=== PATIENT | female | born 1990 | race Caucasian/White ===

== ENCOUNTER 2019-09-12 09:45 | Outpatient (RCR) | payer OTHER, SELFPAY ==
[2019-08-14 13:13] VITALS: BP 107/58; PULSE 106
[2019-08-22 09:50] VITALS: BP 148/80; PULSE 105
[2019-08-29 09:45] VITALS: BP 103/83; PULSE 128
[2019-09-05 13:29] VITALS: BP 103/83; PULSE 105
[2019-09-12 10:42] VITALS: BP 141/74; PULSE 108
== END 2019-09-19 07:29 | disposition home or self-care (01) ==
LOC: ANHOBOP 09:45
PROVIDERS: PCP Internal Medicine; Visit Provider Obstetrics & Gynecology Gynecology
DX: O24.913 Unspecified diabetes mellitus in pregnancy, third trimester (principal); O30.003 Twin pregnancy, unspecified number of placenta and unspecified number of amniotic sacs, third trimester; Z3A.32 32 weeks gestation of pregnancy; Z3A.33 33 weeks gestation of pregnancy; Z3A.34 34 weeks gestation of pregnancy; Z3A.35 35 weeks gestation of pregnancy; Z3A.36 36 weeks gestation of pregnancy
CPT/HCPCS: 59025

== ENCOUNTER 2019-09-15 10:31 | Outpatient (CLI) | payer OTHER, SELFPAY ==
[2019-09-15 11:22] LABS: Hematocrit 29.5 % (37.0-47.0); Hemoglobin 9.4 g/dL (12.0-15.0); Mean Corpuscular HGB Conc 31.9 g/dl (32-36); Mean Corpuscular Volume 84.8 fl (80-100); Mean Platelet Volume 10.1 fl (7.4-10.4); Platelet Count Result 206 k/mm3 (150-375); Red Blood Count 3.48 M/mm3 (4.2-5.4); Red Cell Distribution Width 15.8 % (11.5-14.5); White Blood Count 8.2 K/mm3 (4.5-10.0)
--- NOTE | 2019-09-15 11:30 | ECG_ITS ---
Measurements Intervals [place] Rate: 98 P: 41 DC: 120 QRS: 19 QRSD: 84 T: 22 QT: 344 QTc: 440 Interpretive Statements SINUS RHYTHM POSSIBLE LEFT ATRIAL ENLARGEMENT BORDERLINE ECG Electronically Signed On 09-15-2019 14:43:37 CDT by Demond Howard D.O.
[2019-09-15 12:02] LABS: Vitamin D 25 Hydroxy 43.3 ng/mL
[2019-09-15 12:15] LABS: HIV 1/2 Ab P24 Ag Result Negative (Negative)
[2019-09-16 09:48] LABS: Rapid Plasma Reagin Non-Reactive (NonReactive)
== END 2019-09-15 10:32 | disposition home or self-care (01) ==
LOC: ANHLAB 10:38
PROVIDERS: PCP Internal Medicine; Visit Provider Obstetrics & Gynecology Gynecology
DX: Z34.93 Encounter for supervision of normal pregnancy, unspecified, third trimester (principal); Z3A.00 Weeks of gestation of pregnancy not specified
CPT/HCPCS: 36415; 82306; 85027; 86592; 86703; 86850; 86900; 86901; 93005; G0432

== ENCOUNTER 2019-09-16 10:04 | Inpatient (IN) | payer OTHER, SELFPAY ==
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
[2019-09-16] VITALS (40 sets, daily range): BP systolic 103–151; BP diastolic 43–92; PULSE 79–104; RESP 16; TEMP 36.1–36.4; O2SAT 97–99; BMI 60.7
[2019-09-16] MEDS: LACTATED RINGERS 1,000 ML 999 ML IV CONT ×2 (10:30→11:44)
--- NOTE | 2019-09-16 11:01 | LDADM ---
This patient, Amanda Hogan, was admitted to Labor/Delivery/Recovery 120 on 09/16/19 at 10:04. Plans for labor, pain management and were discussed with patient. Patient/family oriented to hospital policies and general routines including ID bracelet, bed and alarms, visiting hours, pain management, procedures, bathroom and other care routines, personal items, smoking policy, room service/diet and guest tray routines, security routines, and visiting hours. Patient/Family are encouraged to report perceived risks to care and to ask questions if they do not understand what they are told or what they should do. See OBIX for further documentation.
--- NOTE | 2019-09-16 11:33 | WPDANESEPPF ---
Anes - Initial Pre Proc Eval Procedure: Operation Date: 09/16/19 12:00 Proposed Procedures p Repeat Section- Twins - Debra Perdomo MD Date/Time: 09/16/19 11:33 Surgeon: Debra Perdomo MD Pre Op Diagnosis: C/S Patient Data Age: 29 Gender: F Height: 1.65 m Weight: 165.5 kg Last Vital Signs Pulse 104 H 09/16/19 11:14 BP 129/81 09/16/19 11:14 Allergies Allergy/AdvReac Type Severity Reaction Status Date / Time latex Allergy Mild RASH Verified 09/09/19 12:38 Molds and Smuts Allergy Intermediate Difficulty Uncoded 09/09/19 12:38 Breathing CATS Allergy Mild Sneezing Uncoded 09/09/19 12:38 Home Medications Medication Instructions Recorded Confirmed Type pantoprazole 40 mg tablet,delayed 40 mg PO QAM #90 tablet 04/08/19 09/16/19 Rx release PNV cmb#95-ferrous fumarate-FA 1 tablet PO DAILY 09/09/19 09/09/19 History [] aspirin [Adult Low Dose Aspirin] 81 mg PO DAILY 09/09/19 09/16/19 History ergocalciferol (vitamin D2) 1,250 mcg PO WEEKLY 09/09/19 09/09/19 History [Vitamin D2] insulin glargine U-300 conc 80 unit SUBCUT DAILY 09/09/19 09/16/19 History [Toujeo SoloStar U-300 Insulin] insulin glargine U-300 conc 180 unit SUBCUT HS 09/09/19 09/16/19 History [Toujeo SoloStar U-300 Insulin] insulin regular human [Novolin R 65 - 70 unit SUBCUT TID 09/09/19 09/16/19 History Regular U-100 Insuln] labetalol 100 mg PO Q12H 09/09/19 09/16/19 History Patient hx anesthesia problems: none Family hx anesthesia problems: none [facility] Past Medical History Medical History (Updated 09/16/19 @ 10:43 by José Miguel Bustamante DO) Anxiety Diabetes type 2, controlled Hypertension Surgical History Surgical History (Updated 09/16/19 @ 10:43 by José Miguel Bustamante DO) History of History of cholecystectomy History of tonsillectomy Family History Family History (Updated 09/09/19 @ 12:53 by Awa Strickland RN) Father Asthma Hypertension Mother Family history of arthritis Hypertension Social History Social History Smoking status: Former smoker Tobacco type: cigarettes Second hand tobacco smoke exposure: Yes Smoking end date: 11/24/18 Alcohol intake: current Substance use: never Spiritual care concerns: No Anes - Eval Final PreProcedure Day of Procedure 09/16/19 11:33 Patient weight: obese Heart: regular rate and rhythm Lungs: clear to auscultation and normal air movement Airway: Mallampati scale class II Neurological: alert and oriented Last oral intake: >/= 8 hours ASA classification: III Emergent: no Anesthetic plan: proceed Anesthesia type and monitoring: regional spinal Informed Consent: The patient's anesthetic plan and its attendant risks and benefits were discussed with the patient/family/POA. Questions were solicited and answers provided to the satisfaction of the patient/family/POA.
[2019-09-16] MEDS: ceFAZolin 3 GM/D5W 100 ML 100 ML IVPB (11:45)
[2019-09-16 12:04] LABS: Glucose Point of Care 80 (65-105)
--- NOTE | 2019-09-16 13:21 | PM.OP ---
Procedure Note - Brief Procedure Note - Brief Date of procedure: 09/16/19 Pre-op diagnosis: C/S IUP 37 wks; twins; NIDDM; prior csection; transverse/transverse lie Post-op diagnosis: same Procedure performed: repeat LTCS Anesthesia: spinal Surgeon: Debra Perdomo MD Drains: Yes (haq) Packing: No Pathology: yes (placentas) Complications: No immediate complications Condition: stable Disposition: PACU Findings: twin A Tr back up; converted to double footling breech; female 7/9 Apgars weighing 6#13oz twin B Tr back up; self converted to vertex; female 8/9 Apgars weighing 6#12 normal appearing tubes, ovaries, uterus
--- NOTE | 2019-09-16 13:24 | PM.OBDSVD ---
DS: Admitting Diagnosis Admitting Diagnosis Admitting Diagnosis: IUP 37 wks; twins; NIDDM; CHTN; prior csection OB - DS: Summary OB Procedures : NST and Ultrasound OB Procedures Intrapartum: OB Procedures: : None Peripartum Data Infant Delivery Method: Section Procedures: Procedures Operation Date: 09/16/19 12:00 <No data on this case meets the specified criteria> complications: none Status at Discharge Functional status at discharge: independent ambulation Overall status at discharge: patient is progressing back to baseline Time Spent with Patient Time attestation: Total time spent providing and/or coordinating discharge services: DS: Data Data Completed and Pending Labs on day of discharge: Labs from last 24 hours 09/16/19 11:40 POC Capillary Glucose 80 Discharge Plan Discharge Attending physician on discharge: Debra Perdomo Discharging Clinician: Debra Perdomo Anticipated Discharge Date/Time: 09/18/19 07:35 Patient Disposition: Home, Self-Care Activity: may shower, may drive after 2 weeks and pelvic rest Diet: diabetic Wound Care Instructions: keep dressing dry Patient Instructions: Antibiotic Form Stand Alone Forms: General Discharge Information Follow-up/Referrals: Debra Perdomo MD [Physician] - 1 Week Discharge Medications: New hydrocodone-acetaminophen 5-325 mg Tablet 1 tab PO Q3H PRN (Reason: Moderate Pain (4-6)) Qty: 30 RF: 0 metformin [Glucophage XR] 500 mg Tablet Extended Release 24 Hr 500 mg PO BIDWM Qty: 60 RF: 1 norethindrone (contraceptive) 0.35 mg tablet 0.35 mg PO DAILY Qty: 28 RF: 1 Continued ergocalciferol (vitamin D2) [Vitamin D2] 1,250 mcg (50,000 unit) Capsule 1,250 mcg PO WEEKLY RF: 0 labetalol 100 mg Tablet 100 mg PO Q12H RF: 0 PNV cmb#95-ferrous fumarate-FA [] 28 mg iron- 800 mcg Tablet 1 tablet PO DAILY RF: 0 pantoprazole [Protonix] 40 mg tablet,delayed release (DR/EC) 40 mg PO QAM Qty: 90 RF: 1 Discontinued aspirin [Adult Low Dose Aspirin] 81 mg Tablet,Delayed Release (Dr/Ec) 81 mg PO DAILY RF: 0 Toujeo SoloStar U-300 Insulin 300 unit/mL (1.5 mL) Insulin Pen 80 unit SUBCUT DAILY RF: 0 Novolin R Regular U-100 Insuln 100 unit/mL Solution 65 - 70 unit SUBCUT TID RF: 0 Toujeo SoloStar U-300 Insulin 300 unit/mL (1.5 mL) Insulin Pen 180 unit SUBCUT HS RF: 0 Date of admission: 09/16/19 10:04 Primary Care Provider: Dashawn Morales Admitting Provider: Debra Perdomo Attending physician on admission: Debra Perdomo Condition: Stable
[2019-09-16] MEDS: ONDANSETRON INJ 4 MG/2 ML VIAL IV PUSH (17:58)
--- NOTE | 2019-09-16 19:16 | PC.NURSE ---
Patient transferred to post room #277 via stretcher. Support person present. Oriented to unit, room, information board, rooming in, admission packet and security measures. Patient verbalizes understanding.
--- NOTE | 2019-09-16 19:50 | PC.NURSE ---
Pt. checked blood glucose with her meter. Level 62, juice given. Pt reports feeling much better.
[2019-09-16] MEDS: KETOROLAC 30 MG/ML VIAL (*BKC) IV PUSH (21:02)
[2019-09-16] MEDS: LABETALOL HCL 100 MG TABLET PO (21:02)
[2019-09-17] VITALS: BP 108/55; PULSE 87; PULSE 88; RESP 16; TEMP 36.6; O2SAT 100; O2SAT 99
--- NOTE | 2019-09-17 00:16 | OP_ITS ---
DATE OF PROCEDURE: 09/16/2019 PREOPERATIVE DIAGNOSES: 1. Intrauterine at 37 weeks, twins. 2. Dkw-cfduerh-ffminavxh diabetes mellitus. 3. Chronic hypertension. 4. Previous section. POSTOPERATIVE DIAGNOSES: 1. Intrauterine at 37 weeks, twins. 2. Pbg-evriwff-awegxnvuv diabetes mellitus. 3. Chronic hypertension. 4. Previous section. PROCEDURE: Repeat low transverse section. SURGEON: Debra Perdomo M.D. ANESTHESIA: Spinal. FINDINGS: Twin A; breech, converted from transverse back up, 6-pound 13-ounce female, Apgars of 8 at 1 minute and 9 at 5 minutes. Twin B; transverse, converted to vertex spontaneously, female, 6 pounds 12 ounces, Apgars of 8 at 1 minute and 9 at 5 minutes. Normal-appearing uterus. ESTIMATED BLOOD LOSS: 780 cc. PATHOLOGY: Placentas. DESCRIPTION OF PROCEDURE: The patient was taken to the operating room and placed under anesthesia in the dorsal supine position with a leftward tilt. A traxi retractor and electronic train control technician were placed. In addition, cloth tape was used to support the traxi retractor onto the bed above the patient's shoulders. The incision was then made through the prior incision in a Pfannenstiel fashion and carried down to the underlying layer of the fascia. Fascia was nicked in the midline and extended laterally using the Bueno scissors. An [employer]ner's was used to tent the fascia, which was dissected off using sharp and blunt dissection. The rectus muscles were in the midline. The perineum was tented and entered with the Metzenbaum's. The incision was extended with sharp and blunt dissection. The uterus was palpated. No scar tissue was noted. An Ty O retractor was placed. The bladder flap was noted to be deep in the pelvis, not at the level of the incision. A low transverse incision was made with a scalpel and carried down to the underlying amniotic cavity. Membranes were bulging through the incision. The incision was extended laterally using blunt traction. Membranes were ruptured. Clear fluid was noted. The infant was palpated, and both feet were grasped and delivered through the incision. The infant was fully delivered with the scapula. The was rotated, and the arms were delivered spontaneously. The was extended on the abdomen, and the head was delivered spontaneously. Cord was clamped and cut, and the was handed to the awaiting nursery nurse. The membranes of twin B were bulging through the incision. The was palpated and noted to be in the vertex presentation. Membranes were ruptured. Clear fluid was noted. The infant was guided into the incision. The school office assistant applied fundal pressure; although due to her size, the infant was not palpable, and minimal motion was noted of the vertex into the incision while I was trying to guide the vertex. A vacuum extractor was opened and placed, and then with 1 pull, the infant's head was delivered. The vacuum was removed. The remainder of the infant was fully delivered. Nuchal cord x1 was reduced. The cord was clamped and cut, and the handed to the awaiting OB Nursery nurse. The placentas were removed using manual traction. The uterus was cleared of all clots and debris. The uterine incision was closed using 0 Monocryl in a running locked fashion. Same suture was used to imbricate. One additional hkqyal-kg-zcewu suture was required in the midline for hemostasis. The gutters were irrigated. The incision was again inspected and noted to be hemostatic. The Ty O retractor was removed. The fascia was closed using 0 Vicryl in a running fashion. The subcutaneous tissues were irrigated and made hemostatic using Bovie cautery. The skin was closed using 4-0 Vicryl in a subcuticular fashi
[2019-09-17 00:31] LABS: Glucose Point of Care 99 (65-105)
[2019-09-17] MEDS: IBUPROFEN 600 MG TABLET PO ×3 (05:05→19:15)
[2019-09-17] MEDS: SIMETHICONE 80 MG TAB.CHEW PO ×2 (05:05→07:53)
[2019-09-17 05:15] VITALS: PULSE 88; RESP 16; O2SAT 100
[2019-09-17 05:41] LABS: Basophils Percent Auto 0.2 % (0.2-1.2); Eosinophils Absolute Auto 0.1 K/mm3 (0-0.3); Hematocrit 26.8 % (37.0-47.0); Hemoglobin 8.2 g/dL (12.0-15.0); Immature Granulocyte Absolute 0.09 K/mm3 (0.00-0.031); Lymphocytes Absolute Auto 1.08 K/mm3 (0.9-3.2); Lymphocytes Percent Auto 12.5 % (18.3-44.2); Mean Corpuscular HGB Conc 30.6 g/dl (32-36); Mean Corpuscular Hemoglobin 26.7 pg (26-34); Mean Corpuscular Volume 87.3 fl (80-100); Mean Platelet Volume 9.7 fl (7.4-10.4); Monocytes Absolute Auto 0.5 K/mm3 (0.1-0.6); Monocytes Percent Auto 5.3 % (2.6-8.5); Neutrophils Absolute Auto 6.9 K/mm3 (1.3-6.7); Platelet Count Result 166 k/mm3 (150-375); Red Blood Count 3.07 M/mm3 (4.2-5.4); Red Cell Distribution Width 15.9 % (11.5-14.5); White Blood Count 8.6 K/mm3 (4.5-10.0)
[2019-09-17 05:42] LABS: Glucose Point of Care 69 (65-105)
[2019-09-17 07:35] VITALS: BP 118/58; PULSE 94; RESP 18; TEMP 36.4; O2SAT 98
[2019-09-17] MEDS: POLYSACCHARIDE IRON COMPLEX 150 MG CAPSULE PO ×2 (07:54→19:15)
[2019-09-17] MEDS: DOCUSATE SODIUM 100 MG CAPSULE PO ×2 (07:54→19:15)
--- NOTE | 2019-09-17 08:19 | WPDANLDPN2 ---
Anes-Prog Note L&D Date/Time: 09/17/19 08:19 Comfortable throughout: section Neuraxial method: spinal Epidural/Spinal procedure site: clean & non-tender Neuro status: Neuro function grossly intact. Cardiovascular status: normal Respiratory status: normal Airway patency: baseline Mental status: baseline Post-Op hydration status: normal Vital Signs: Last Vital Signs Temp 36.6 C 09/17/19 00:00 Pulse 88 09/17/19 05:15 Resp 16 09/17/19 05:15 BP 108/55 L 09/17/19 00:00 Pulse Ox 100 09/17/19 05:15 I/O: Intake & Output 09/16/19 09/17/19 09/17/19 23:59 07:59 15:59 Intake Total 1200 Output Total 750 Balance 450 Post-procedural complaints: none Patient feedback: Patient satisfied with anesthetic care.
--- NOTE | 2019-09-17 08:19 | WPDANLDNPN2 ---
Anes-Prog Note L&D-Neuraxial Date/Time: 09/17/19 08:19 Neuraxial medications: intrathecal PF morphine Opiod-related complaints: none Patient feedback: Patient satisfied with post-operative pain management.
[2019-09-17 10:28] LABS: Glucose Point of Care 132 (65-105)
--- NOTE | 2019-09-17 11:50 | PC.NURSE ---
Consult with pt., mother reports her goals is to pump and give infants the milk she has and will use formula as needed. Mother has been set up with a pump and has not pumped regularly, stating she will pump when she gets home. Discussed stimulation and milk supply, suggested if she pump every three hours for 5-10 min and increasing as time allows. Reviewed instructions given on breast pump care and usage, pumping schedule, nipple care, and collection and storage of breast milk. Encouraged [id number], breast massage and manual expression to stimulate supply. Requested mother call out for assist when she is ready to pump.
[2019-09-17 12:10] VITALS: BP 116/61; PULSE 87; RESP 16; TEMP 37.3; O2SAT 98
[2019-09-17 15:16] LABS: Glucose Point of Care 105 (65-105)
--- NOTE | 2019-09-17 17:18 | P.PNOB_ITS ---
OB - PN: Subj Subjective Date/time seen: 09/17/19 17:18 Patient seen this am doing well no complaints pain controlled babies are doing well OB - PN: Obj Data Labs CBC & Chem 7: 09/17/19 05:34 Labs: Laboratory Results - last 24 hr 09/17/19 09/17/19 09/17/19 00:21 04:53 05:34 WBC 8.6 RBC 3.07 L Hgb 8.2 L Hct 26.8 L MCV 87.3 MCH 26.7 MCHC 30.6 L RDW 15.9 H Plt Count 166 MPV 9.7 Immature Gran % (Auto) 1.0 H Neut % (Auto) 80.0 H Lymph % (Auto) 12.5 L Butler % (Auto) 5.3 Eos % (Auto) 1.0 Baso % (Auto) 0.2 Lymph # (Auto) 1.08 Butler # (Auto) 0.5 Eos # (Auto) 0.1 Baso # (Auto) 0.0 Abs Immat Gran (auto) 0.09 H Absolute Neuts (auto) 6.9 H Absolute Nucleated RBC 0.0 Nucleated RBC % 0.0 POC Capillary Glucose 99 69 09/17/19 09/17/19 10:24 15:12 WBC RBC Hgb Hct MCV MCH MCHC RDW Plt Count MPV Immature Gran % (Auto) Neut % (Auto) Lymph % (Auto) Butler % (Auto) Eos % (Auto) Baso % (Auto) Lymph # (Auto) Butler # (Auto) Eos # (Auto) Baso # (Auto) Abs Immat Gran (auto) Absolute Neuts (auto) Absolute Nucleated RBC Nucleated RBC % POC Capillary Glucose 132 H 105 OB - PN A/P Assessment and Plan (1) S/P : Code(s): Z98.891 - History of uterine scar from previous surgery Status: Acute Assessment and Plan: contine with pp care continue iron suppledments Time Spent With Patient Time: Total time spent is greater than 50% in coordination of care (as documented) at patient's floor/unit and/or counseling patient: Exam GI: Other: incision covered with bandage
[2019-09-17 19:09] VITALS: BP 135/67; PULSE 92; RESP 20; TEMP 36.7
[2019-09-17 20:23] LABS: Glucose Point of Care 141 (65-105)
[2019-09-18] MEDS: SIMETHICONE 80 MG TAB.CHEW PO ×2 (02:45→11:24)
[2019-09-18] MEDS: IBUPROFEN 600 MG TABLET PO ×2 (02:45→11:24)
--- NOTE | 2019-09-18 07:33 | P.PNOB_ITS ---
OB - PN: Subj Subjective Date/time seen: 09/18/19 07:33 Patient comments: no complaints, pain well controlled and tolerating diet Dr[place] baby status: doing well and bottle feeding well Drury feeding status: breast and bottle feeding OB - PN: Obj Data Labs CBC & Chem 7: 09/17/19 05:34 Labs: Laboratory Results - last 24 hr 09/17/19 09/17/19 09/17/19 10:24 15:12 20:20 POC Capillary Glucose 132 H 105 141 H OB - PN A/P Assessment and Plan (1) S/P : Code(s): Z98.891 - History of uterine scar from previous surgery Status: Acute Assessment and Plan: Doing well. DC home. Plan POP until Mirena (2) Diabetes type 2, controlled: Code(s): E11.9 - Type 2 diabetes mellitus without complications Status: Acute Assessment and Plan: Metformin er 500 BID (3) Hypertension: Code(s): I10 - Essential (primary) hypertension Status: Acute Assessment and Plan: continue labetalol Time Spent With Patient Time: Total time spent is greater than 50% in coordination of care (as documented) at patient's floor/unit and/or counseling patient: Exam GI: Other: bandage dry;intact : Bimanual exam- vagina & uterus: other (Uterus firm, nt @U)
[2019-09-18] MEDS: DOCUSATE SODIUM 100 MG CAPSULE PO (07:41)
[2019-09-18] MEDS: POLYSACCHARIDE IRON COMPLEX 150 MG CAPSULE PO (07:42)
[2019-09-18] MEDS: MEASLES,MUMPS,RUBELLA VACCINE 0.5 ML VIAL SUB-Q (07:42)
--- NOTE | 2019-09-18 07:55 | PC.NURSE ---
Patient instructed to view the discharge video Mother & Baby Care, The First Two Weeks . Patient was given the opportunity and encouraged to ask questions. Patient verbalized understanding of information shared and has been given the mother/baby guide for home reference.
[2019-09-18 07:57] LABS: Glucose Point of Care 74 (65-105)
[2019-09-18 09:29] VITALS: BP 142/70; PULSE 80; RESP 18; TEMP 37.2; O2SAT 99
--- NOTE | 2019-09-19 14:50 | PC.NURSE ---
Mother called in to unit floor with questions concerning feeding. Mother is concerned one infant is sleepy and not waking as she feels she should for feedings. Questioned mother if appears to be in distress, mother states is breathing regularly and does not have any discoloration. Advised mother to call her ICP or go to ER.
[2019-09-20 09:35] VITALS: BP 148/85; PULSE 79; RESP 20; TEMP 36.7
--- NOTE | 2019-10-21 16:52 | PM.IMHP ---
H&P: HPI History of Present Illness Chief complaint: C/S Narrative: On September 16, 2019: Amanda Hogan is a 29 year old female at 36 5/7 wks was admitted with Di/di twins for repeat csection. complicted by NIDDM that required excessive amounts of insulin. growth has been concordant. Infants have been transverse throughout . labs A+; RPR-; HIV -; RPR -; HBSAg -. [facility] Past Medical History Medical History (Updated 10/21/19 @ 16:58 by Debra Perdomo MD) Anxiety Diabetes type 2, controlled Hypertension Surgical History Surgical History (Updated 10/21/19 @ 16:58 by Debra Perdomo MD) History of History of cholecystectomy History of tonsillectomy S/P Family History Family History (Updated 09/09/19 @ 12:53 by Awa Strickland RN) Father Asthma Hypertension Mother Family history of arthritis Hypertension Social History Social History Smoking status: Former smoker Tobacco type: cigarettes Second hand tobacco smoke exposure: Yes Smoking end date: 11/24/18 Alcohol intake: current Substance use: never Spiritual care concerns: No Meds Home Medications and Allergies Home Medications Medication Instructions Recorded Confirmed Type PNV cmb#95-ferrous fumarate-FA 1 tablet PO DAILY 09/09/19 09/09/19 History [] ergocalciferol (vitamin D2) 1,250 mcg PO WEEKLY 09/09/19 09/09/19 History [Vitamin D2] labetalol 100 mg PO Q12H 09/09/19 09/16/19 History hydrocodone-acetaminophen 1 tab PO Q3H PRN #30 tablet 09/18/19 Rx metformin [Glucophage XR] 500 mg PO BIDWM #60 tablet 09/18/19 Rx norethindrone (contraceptive) 0.35 mg PO DAILY #28 tablet 09/18/19 Rx pantoprazole 40 mg tablet,delayed 40 mg PO QAM #90 tablet 10/05/19 Rx release Allergies Allergy/AdvReac Type Severity Reaction Status Date / Time latex Allergy Mild RASH Verified 09/09/19 12:38 Molds and Smuts Allergy Intermediate Difficulty Uncoded 09/09/19 12:38 Breathing CATS Allergy Mild Sneezing Uncoded 09/09/19 12:38 Exam Const: General: healthy appearing, no acute distress and alert Orientation/consciousness: patient oriented x3 Resp: Effort & Inspection: normal respiratory effort Auscultation: clear to auscultation bilaterally Cardio: Rate: regular rate Rhythm: regular rhythm GI: GI Palp: Yes Soft to palpation, No Tenderness to palpation present (GI) and No Palpable mass present Other: Gravid with FH of 64 cm FHTs reactive x 2 : External Female Exam: normal external appearance Bimanual exam- vagina & uterus: other (gravid) Neuro: General: patient oriented x3 Assessment and Plan Assessment and plan (1) Dichorionic diamniotic twin : Code(s): O30.049 - Twin , dichorionic/diamniotic, unspecified trimester Status: Acute Assessment and Plan: transverse x 2-plan repeat LTCS (2) Diabetes type 2, controlled: Code(s): E11.9 - Type 2 diabetes mellitus without complications Status: Acute (3) Hypertension: Code(s): I10 - Essential (primary) hypertension Status: Acute (4) History of : Code(s): Z98.891 - History of uterine scar from previous surgery Status: Acute (5) 36 to 37 weeks gestation of : Status: Acute
== END 2019-09-18 12:54 | disposition home or self-care (01) | DRG 786 ==
LOC: ANHLDR 13:26 → ANHOB2 16:16
PROVIDERS: Admitting Provider Obstetrics & Gynecology Gynecology; PCP Internal Medicine; Visit Provider Obstetrics & Gynecology Gynecology
PROC: (CPT 59514; principal; 2019-09-16 12:00)
DX: O34.211 Maternal care for low transverse scar from previous cesarean delivery (principal); O24.12 Pre-existing type 2 diabetes mellitus, in childbirth; O10.92 Unspecified pre-existing hypertension complicating childbirth; Z37.2 Twins, both liveborn; Z3A.37 37 weeks gestation of pregnancy; O30.043 Twin pregnancy, dichorionic/diamniotic, third trimester; O32.8XX1 Maternal care for other malpresentation of fetus, fetus 1; O99.214 Obesity complicating childbirth; E66.9 Obesity, unspecified; O99.344 Other mental disorders complicating childbirth; F41.9 Anxiety disorder, unspecified
CPT/HCPCS: 36415; 82306; 85025; 85027; 86592; 86703; 86850; 86900; 86901; 88307; 90710; 93005; A9270; G0432; J0690; J1885; J2274; J2405; J2590; J7120